=== PATIENT | female | born 1950 | race Caucasian/White ===

== ENCOUNTER 2021-11-23 17:23 | Outpatient (REF) | payer SELFPAY ==
[2021-11-24 12:05] LABS: COVID-19 RT-PCR UVMMC Result Negative (Negative)
== END 2021-11-23 17:24 | disposition home or self-care (01) ==
LOC: LBN 17:23
PROVIDERS: Visit Provider Physician Assistant Medical
DX: R05.8 Other specified cough (principal); Z20.822 Contact with and (suspected) exposure to COVID-19
CPT/HCPCS: U0003